=== PATIENT | male | born 2005 | race Caucasian/White ===

== ENCOUNTER 2024-06-26 03:26 | Outpatient (CLI) | payer MEDICAID, SELFPAY | END 2024-06-26 03:27 | disposition home or self-care (01) | LOC: AMB 06-30 03:02 | PROVIDERS: Visit Provider Family Medicine | DX: R10.9 Unspecified abdominal pain (principal); N49.9 Inflammatory disorder of unspecified male genital organ | CPT/HCPCS: A0425; A0427 ==